=== PATIENT | female | born 1975 | race Caucasian/White ===

== ENCOUNTER 2020-12-19 12:31 | Emergency (ER) | payer BC ==
[2020-12-19 13:37] LABS: HEMOGLOBIN 15.2 gm/dl (12.3-15.3); RED BLOOD COUNT 5.16 M/UL (4.00-5.10)
[2020-12-19 14:05] LABS: BUN/CREATININE RATIO 19 (0-10)
== END 2020-12-19 17:56 | disposition home or self-care (01) ==
LOC: ER1 12:31
DX: R07.89 Other chest pain (principal); I10 Essential (primary) hypertension
CPT/HCPCS: 71045; 80053; 81001; 82550; 82553; 83874; 84484; 84703; 85025; 85379; 93005; 99285; Q9967

== ENCOUNTER → 2021-01-18 | Outpatient (CLI) | payer BC | LOC: MAMO 08:55 | DX: Z12.31 Encounter for screening mammogram for malignant neoplasm of breast (principal) | CPT/HCPCS: 77063; 77067 ==